=== PATIENT | female | born 1980 | race Caucasian/White ===

== ENCOUNTER 2022-04-07 14:38 | Inpatient (IN) ==
[2022-04-07 17:50] LABS: ABS Basophils 0.1 10^3/ul (0-0.2); ABS Eosinophils 0.1 10^3/ul (0-0.6); ABS Lymphocytes 2.4 10^3/ul (1.0-4.8); ABS Monocytes 0.6 10^3/ul (0-0.8); ABS Neutrophils 5.3 10^3/ul (1.5-7.7); Eosinophil % 1.1 %; Hematocrit 39 % (35-47); Hemoglobin 13.5 g/dL (12.0-16.0); Lymphocyte % 28.4 %; Mean Corpuscular HGB Conc 34 g/dL (31-36); Mean Corpuscular Hemoglobin 30 pg (27-31); Mean Corpuscular Volume 86 fL (80-97); Mean Platelet Volume 10.1 fL (7.4-10.4); Platelet Count 235 10^3/uL (150-450); Red Blood Count 4.56 10^6 /uL (3.70-4.87); Red Cell Distribution Width 14 % (10-15); White Blood Count 8.5 10^3/uL (3.5-10.8)
[2022-04-07 18:00] LABS: Urine Appearance Cloudy; Urine Bilirubin Negative (Negative); Urine Blood 3+ (Negative); Urine Color Yellow; Urine Glucose 3+(>=500 mg/dL) (Negative); Urine Ketones Trace (Negative); Urine Nitrite Negative (Negative); Urine Protein Negative (Negative); Urine Specific Gravity 1.033 (1.002-1.030); Urine Urobilinogen Negative (Negative)
[2022-04-07 18:03] LABS: Urine Bacteria 1+ (Absent); Urine Red Blood Cell Trace(0-2/hpf) (Absent); Urine Squamous Epithelial Cell Present (Absent); Urine White Blood Cell Trace(0-5/hpf) (Absent)
[2022-04-07 18:27] LABS: Urine Benzodiazepine Screen Presumptive Positive (None Detect); Urine Cannabinoids Screen None Detected (None Detect); Urine Opiates Screen None Detected (None Detect)
[2022-04-07 18:46] LABS: HIV 4th Generation Nonreactive (Nonreactive)
[2022-04-07 18:54] LABS: ALT 28 U/L (7-52); AST 16 U/L (13-39); Acetaminophen < 15 mcg/mL; Albumin 4.2 g/dL (3.2-5.2); Albumin/Globulin Ratio 1.8 (1-3); Alcohol, S < 13 mg/dL (<13); Alkaline Phosphatase 54 U/L (35-149); Anion Gap 7 mmol/L (2-11); Blood Urea Nitrogen 19 mg/dL (6-24); CO2 Carbon Dioxide 25 mmol/L (22-32); Calcium 9.2 mg/dL (8.6-10.3); Chloride 104 mmol/L (101-111); Creatinine, Serum 0.63 mg/dL (0.51-0.95); Globulin 2.3 g/dL (2-4); Glucose 245 mg/dL (70-100); Salicylate < 2.50 mg/dL (<30); Sodium 136 mmol/L (135-145); Total Protein 6.5 g/dL (6.4-8.9); eGFR CKD-EPI 113.5 (>60)
[2022-04-07 19:04] LABS: TSH Ultra Thyroid Stim Horm 0.13 mcIU/mL (0.34-5.60)
[2022-04-08] MEDS ORDERED: Al Hydrox/Mg Hydrox/Simet LIQ 30 ML UDC PO PRN (05:37)
[2022-04-08] MEDS: Vitamin THERAPEUTIC TAB PO SCH (09:52)
[2022-04-08 11:39] LABS: Free T4 0.98 ng/dL (0.61-1.12)
[2022-04-08 12:56] LABS: Magnesium 1.7 mg/dL (1.9-2.7)
[2022-04-08 14:22] LABS: Chlamydia trachomatis NAA Negative (Negative); Neisseria gonorrhoeae (GC) NAA Negative (Negative)
[2022-04-09] MEDS: NP THYROID 30 MG PO SCH (06:12)
[2022-04-09] MEDS: NP THYROID 120 MG PO SCH (06:12)
[2022-04-09] MEDS: Magnesium Chloride EC 64 mgTAB PO SCH (08:15)
[2022-04-09] MEDS: Vitamin THERAPEUTIC TAB PO SCH (08:15)
[2022-04-09 08:28] LABS: HCG Pregnancy 6.67 mIU/mL
[2022-04-10] MEDS: NP THYROID 120 MG PO SCH (06:25)
[2022-04-10] MEDS: NP THYROID 30 MG PO SCH (06:25)
[2022-04-10] MEDS: Magnesium Chloride EC 64 mgTAB PO SCH (09:00)
[2022-04-10] MEDS: Vitamin THERAPEUTIC TAB PO SCH (09:00)
[2022-04-11] MEDS: NP THYROID 30 MG PO SCH (06:13)
[2022-04-11] MEDS: NP THYROID 120 MG PO SCH (06:13)
[2022-04-11] MEDS: Vitamin THERAPEUTIC TAB PO SCH (08:26)
[2022-04-11] MEDS: Magnesium Chloride EC 64 mgTAB PO SCH (08:26)
[2022-04-12] MEDS: NP THYROID 120 MG PO SCH (07:33)
[2022-04-12] MEDS: NP THYROID 30 MG PO SCH (07:34)
[2022-04-12] MEDS: Magnesium Chloride EC 64 mgTAB PO SCH (09:55)
[2022-04-12] MEDS: Vitamin THERAPEUTIC TAB PO SCH (09:55)
[2022-04-13] MEDS: NP THYROID 30 MG PO SCH (07:27)
[2022-04-13] MEDS: NP THYROID 120 MG PO SCH (07:27)
[2022-04-13 08:06] LABS: HCG Pregnancy < 0.60 mIU/mL
[2022-04-13 08:16] LABS: TSH Ultra Thyroid Stim Horm 0.35 mcIU/mL (0.34-5.60)
[2022-04-13] MEDS: Vitamin THERAPEUTIC TAB PO SCH (09:35)
[2022-04-13] MEDS: Magnesium Chloride EC 64 mgTAB PO SCH (09:38)
[2022-04-13 12:19] LABS: Free T4 0.71 ng/dL (0.61-1.12)
[2022-04-14] MEDS: NP THYROID 120 MG PO SCH (07:58)
[2022-04-14] MEDS: NP THYROID 30 MG PO SCH (07:58)
[2022-04-14] MEDS: Magnesium Chloride EC 64 mgTAB PO SCH (08:04)
[2022-04-14] MEDS: Vitamin THERAPEUTIC TAB PO SCH (08:06)
[2022-04-14 15:21] LABS: Magnesium 1.6 mg/dL (1.9-2.7)
[2022-04-14] MEDS: Magnesium Hydroxide LIQ 30 ML UDC PO PRN (22:01)
[2022-04-15] MEDS: NP THYROID 30 MG PO SCH (06:04)
[2022-04-15] MEDS: NP THYROID 120 MG PO SCH (06:04)
[2022-04-15 08:34] LABS: Calcium 9.3 mg/dL (8.6-10.3); Creatinine, Serum 0.64 mg/dL (0.51-0.95); Magnesium 1.8 mg/dL (1.9-2.7); Potassium 4.6 mmol/L (3.5-5.0); eGFR CKD-EPI 113.1 (>60)
[2022-04-15] MEDS: Vitamin THERAPEUTIC TAB PO SCH (08:55)
[2022-04-15] MEDS: Magnesium Chloride EC 64 mgTAB PO SCH (08:56)
[2022-04-15] MEDS: Magnesium Hydroxide LIQ 30 ML UDC PO PRN (08:57)
[2022-04-16] MEDS: NP THYROID 30 MG PO SCH (06:09)
[2022-04-16] MEDS: NP THYROID 120 MG PO SCH (06:09)
[2022-04-16] MEDS: Vitamin THERAPEUTIC TAB PO SCH (09:06)
[2022-04-16] MEDS: Magnesium Chloride EC 64 mgTAB PO SCH (09:06)
[2022-04-17] MEDS: NP THYROID 120 MG PO SCH (06:43)
[2022-04-17] MEDS: NP THYROID 30 MG PO SCH (06:43)
[2022-04-17] MEDS: Vitamin THERAPEUTIC TAB PO SCH (08:27)
[2022-04-17] MEDS: Magnesium Chloride EC 64 mgTAB PO SCH (08:27)
[2022-04-18] MEDS: NP THYROID 120 MG PO SCH (06:33)
[2022-04-18] MEDS: NP THYROID 30 MG PO SCH (06:33)
[2022-04-18 07:40] VITALS: BP 140/67
[2022-04-18] MEDS: Magnesium Chloride EC 64 mgTAB PO SCH (09:01)
[2022-04-18] MEDS: Vitamin THERAPEUTIC TAB PO SCH (09:02)
== END 2022-04-18 14:18 | disposition home or self-care (01) | DRG 755 ==
LOC: ED 14:38 → EDHOLD 04-08 05:25 → BSU 04-08 05:35
PROVIDERS: ADMIT Psychiatry & Neurology Psychiatry; ATTEND Psychiatry & Neurology Psychiatry